=== PATIENT | male | born 1995 | race Caucasian/White ===

== ENCOUNTER 2024-04-28 03:08 | Emergency (ER) | payer OTHER ==
[2024-04-28 04:02] LABS: Barbiturates NEGATIVE (NEGATIVE); Benzodiazepines NEGATIVE (NEGATIVE); Cocaine NEGATIVE (NEGATIVE); METHAMPHETAM NEGATIVE (NEGATIVE); Methadone NEGATIVE (NEGATIVE); Opiates NEGATIVE (NEGATIVE); Phencyclidine NEGATIVE (NEGATIVE); THC Cannibis NEGATIVE (NEGATIVE)
--- NOTE | 2024-04-28 04:35 | EDPHYS ---
Physician Documentation [facility] Name: Joey Rod Age: 28 yrs Sex: Male : 1995 Arrival Date: 04/28/2024 Time: 03:08 Bed 6 Private MD: ED Physician Alexandre Gaitan HPI: 04/28 04:27 This 28 yrs old Male presents to ER via [employer] with complaints of sp4 Urinary Problem. 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 No medical complaints. . Historical: - Allergies: 03:13 No Known Allergies; bm8 - Home Meds: 03:13 None [Active]; bm8 - PMHx: 03:13 None; bm8 - PSHx: 03:13 right collar bone repair; left leg repair x2; bm8 - Immunization history:: Adult Immunizations up to date. - Infectious Disease History:: Denies. - Social history:: Smoking status: Patient reports use of chewing tobacco. - Family history:: not pertinent. ROS: 04:45 Constitutional: Negative for fever, chills, and weight loss, sp4 04:45 All other systems are negative, Exam: 04:45 Constitutional: This is a well developed, well nourished patient who is awake, alert, sp4 and in no acute distress. Head/Face: Normocephalic, atraumatic. Eyes: Pupils equal round and reactive to light, extra-ocular motions intact. Lids and lashes normal. Conjunctiva and sclera are not injected. Cornea within normal limits. Periorbital areas with no swelling, redness, or edema. ENT: Nares patent. No nasal discharge, no septal abnormalities noted. Tympanic membranes are normal and external auditory canals are clear. Oropharynx with no redness, swelling, or masses, exudates, or evidence of obstruction, uvula midline. Mucous membranes moist. Neck: Trachea midline, no thyromegaly or masses palpated, and no cervical lymphadenopathy. Supple, full range of motion without nuchal rigidity, or vertebral point tenderness. Chest/axilla: Normal chest wall appearance and motion. Nontender with no deformity. No lesions are appreciated. Cardiovascular: Regular rate and rhythm with a normal S1 and S2. No gallops, murmurs, or rubs. Normal PMI, no JVD. No pulse deficits. Respiratory: Lungs have equal breath sounds bilaterally, clear to auscultation and percussion. No rales, rhonchi or wheezes noted. No increased work of breathing, no retractions or nasal flaring. Abdomen/GI: Soft, with normal bowel sounds. No distension or tympany. No guarding or rebound. No evidence of tenderness throughout. Back: No spinal tenderness. No costovertebral tenderness. Skin: Warm, dry with normal turgor. Normal color with no rashes, no lesions, and no evidence of cellulitis. MS/ Extremity: Pulses equal, no cyanosis. Neurovascular intact. Full, normal range of motion. Neuro: Awake and alert, GCS 15, oriented to person, place, time, and situation. Cranial nerves II-XII grossly intact. Motor strength 5/5 in all extremities. Sensory grossly intact. Vital Signs: 03:10 BP 147 / 94; Pulse 65; Resp 18; Temp 98.8; Pulse Ox 97% on R/A; Weight 86.18 kg; Height bm8 5 ft. 8 in. ; Pain 0/10; 04:18 bm8 03:10 Body Mass Index 28.89 (86.18 kg, 172.72 cm) bm8 03:10 Pain Scale: Adult bm8 04:18 pt declined ffurther vital signs bm8 [place] Coma Score: 03:15 Eye Response: spontaneous(4). Motor Response: obeys commands(6). Verbal Response: bm8 oriented(5). Total: 15. 04:45 Eye Response: spontaneous(4). Motor Response: obeys commands(6). Verbal Response: sp4 oriented(5). Total: 15. MDM: 04:29 Patient medically screened. sp4 04:45 Differential diagnosis: Drug screening without medical complaint. Data reviewed: vital sp4 signs, nurses notes. ED course: Drug screen done as requested. Patient stable for discharge home. . 04/28 03:16 Order name: Urine Drug Screen; Complete Time: 04:30 bm8 Administered Medications: No medications were administered Disposition Summary: 04/28/24 04:34 Discharge Ordered Notes: Location: Home sp4 Problem: new sp4 Symptoms: have improved sp4 Condition: Stable sp4 Diagnosis - Acute evaluation for Drug testing sp4 Followup: sp4 - With: Private Physician - When: As needed - Reason: Discharge Instructions: - Discharge Summary Sheet sp4 - Medical Screening Exam sp4 Forms: - Patient Portal Instructions sp4 Signatures: Dispatcher [employer] Alexandre Madison MD MD sp4 Pablo Weller, RN RN bm8 Corrections: (The following items were deleted from the chart) 03:17 03:17 URINE DRUG SCREEN+[id number] ordered. LIVIA BHAKTA
--- NOTE | 2024-04-28 04:35 | ER ---
Nurse's Notes [facility] Name: Joey Rod Age: 28 yrs Sex: Male : 1995 Arrival Date: 04/28/2024 Time: 03:08 Bed 6 Private MD: Diagnosis: Acute evaluation for Drug testing Presentation: 04/28 03:10 Chief complaint: Patient states: I accidentally backed into a dumpster. Pt was brought bm8 in by yarn preparation supervisor for post accident UA. Coronavirus screen: At this time, the client does not indicate any symptoms associated with coronavirus-19. Ebola Screen: Patient negative for fever greater than or equal to 101.5 degrees Fahrenheit, and additional compatible Ebola Virus Disease symptoms Patient denies exposure to infectious person. Patient denies travel to an Ebola-affected area in the 21 days before illness onset. No symptoms or risks identified at this time. Initial Sepsis Screen: Does the patient meet any 2 criteria? No. Patient's initial sepsis screen is negative. Does the patient have a suspected source of infection? No. Patient's initial sepsis screen is negative. Risk Assessment: Do you want to hurt yourself or someone else? Patient reports no desire to harm self or others. Onset of symptoms is unknown. 03:10 Method Of Arrival: [employer]: [facility] 03:10 Acuity: BERRY 4 bm8 Triage Assessment: 03:13 General: Appears in no apparent distress. comfortable, Behavior is calm, cooperative, bm8 appropriate for age. Pain: Denies pain. EENT: No deficits noted. No signs and/or symptoms were reported regarding the EENT system. Neuro: No deficits noted. Level of Consciousness is awake, alert, obeys commands, Oriented to person, place, time, situation, Appropriate for age. Cardiovascular: Denies chest pain, Capillary refill < 3 seconds Patient's skin is warm and dry. Respiratory: Airway is patent Respiratory effort is even, unlabored, Respiratory pattern is regular, symmetrical. GI: No signs and/or symptoms were reported involving the gastrointestinal system. : No signs and/or symptoms were reported regarding the genitourinary system. Derm: No signs and/or symptoms reported regarding the dermatologic system. Musculoskeletal: No signs and/or symptoms reported regarding the musculoskeletal system. Historical: - Allergies: 03:13 No Known Allergies; bm8 - Home Meds: 03:13 None [Active]; bm8 - PMHx: 03:13 None; bm8 - PSHx: 03:13 right collar bone repair; left leg repair x2; bm8 - Immunization history:: Adult Immunizations up to date. - Infectious Disease History:: Denies. - Social history:: Smoking status: Patient reports use of chewing tobacco. - Family history:: not pertinent. Screenin:15 [facility] ED Fall Risk Assessment (Adult) History of falling in the last 3 months, bm8 including since admission No falls in past 3 months (0 pts) Confusion or Disorientation No (0 pts) Intoxicated or Sedated No (0 pts) Impaired Gait No (0 pts) Mobility Assist Device Used No (0 pt) Altered Elimination No (0 pt) Score/Fall Risk Level 0 - 2 = Low Risk Oriented to surroundings, Maintained a safe environment, Educated pt \T\ family on fall prevention, incl call for assistance when getting out of bed, Assessed \T\ reinforced patient's understanding of fall precautions, Hourly rounding (assess needs \T\ fall precautionary measures) done, Used ambulatory aids as needed (educated on \T\ assisted with), Used gait belt as appropriate. Abuse screen: Denies threats or abuse. Nutritional screening: No deficits noted. Tuberculosis screening: No symptoms or risk factors identified. Assessment: 03:16 Reassessment: see triage assessment. bm8 04:18 Reassessment: Patient appears in no apparent distress at this time. No changes from bm8 previously documented assessment. Patient and/or family updated on plan of care and expected duration. Pain level reassessed. Patient is alert, oriented x 3, equal unlabored respirations, skin warm/dry/pink. pt declined further vital signs. Vital Signs: 03:10 BP 147 / 94; Pulse 65; Resp 18; Temp 98.8; Pulse Ox 97% on R/A; Weight 86.18 kg; Height bm8 5 ft. 8 in. ; Pain 0/10; 04:18 bm8 03:10 Body Mass Index 28.89 (86.18 kg, 172.72 cm) bm8 03:10 Pain Scale: Adult bm8 04:18 pt declined ffurther vital signs bm8 [place] Coma Score: 03:15 Eye Response: spontaneous(4). Motor Response: obeys commands(6). Verbal Response: bm8 oriented(5). Total: 15. 04:45 Eye Response: spontaneous(4). Motor Response: obeys commands(6). Verbal Response: sp4 oriented(5). Total: 15. ED Course: 03:10 Patient arrived in ED. bm8 03:13 Triage completed. bm8 03:13 Arm band placed on right wrist. Patient placed in an exam room. bm8 03:15 Patient has correct armband on for positive identification. Bed in low position. Side bm8 rails up X 1. Adult w/ patient. Provided Education on: post er care. Client placed on continuous cardiac and pulse oximetry monitoring. NIBP monitoring applied. Pulse ox on. NIBP on. 03:15 No provider procedures requiring assistance completed. Patient did not have IV access bm8 during this emergency room visit. 04:18 Pablo Weller, RN is Primary Nurse. bm8 04:27 Alexandre Gaitan MD is Attending Physician. sp4 Administered Medications: No medications were administered Medication: 03:15 VIS not applicable for this client. bm8 Outcome: 04:34 Discharge ordered by . sp4 04:44 Discharged to [employer] Enforcement bm8 04:44 Condition: stable 04:44 Discharge instructions given to patient, police, Instructed on discharge instructions, Demonstrated understanding of instructions, 04:45 Patient left the ED. bm8 Signatures: Alexandre Gaitan MD MD sp4 Pablo Weller, RN RN bm8
[2024-04-28 04:50] VITALS: BP 147/94; TEMP 98.8; O2SAT 97
== END 2024-04-28 04:45 | disposition home or self-care (01) ==
LOC: ER 03:08
DX: Z02.83 Encounter for blood-alcohol and blood-drug test (principal)
CPT/HCPCS: 80307; 99283